=== PATIENT | female | born 1975 ===

== ENCOUNTER 2020-11-14 07:45 | Inpatient (IN) | payer OTHER ==
[~2020-11-14] VITALS: Ht 154.9 cm; Wt 90.7 kg
[2020-11-14] MEDS ORDERED: TIADYLT ER180 MG PO (09:17)
[2020-11-14] MEDS ORDERED: HYZAAR 100-251 EACH PO (09:17)
[2020-11-14] MEDS ORDERED: CARDURA1 MG PO (09:17)
[2020-11-14] MEDS ORDERED: FOLIC ACID0.8 M1 PO (09:18)
[2020-11-14] MEDS ORDERED: B12 ACTIVE1000 MCG PO (09:18)
[2020-11-14] MEDS ORDERED: PEPCID AC10 MG PO (09:18)
[2020-11-14] MEDS ORDERED: MAXIMUM D3325 MCG PO (09:20)
== END 2020-11-23 12:33 | disposition home or self-care (01) | DRG 743 ==
LOC: OB/GYN 11-21 05:00 → O/R 11-21 05:00 → OB/GYN 11-21 07:15
PROVIDERS: ADMIT Obstetrics & Gynecology; ATTEND Obstetrics & Gynecology
PROC: 0UB70ZZ Excision of Bilateral Fallopian Tubes, Open Approach (ICD-10-PCS; 2020-11-21)
PROC: 0UT20ZZ Resection of Bilateral Ovaries, Open Approach (ICD-10-PCS; 2020-11-21)
PROC: 0UB90ZZ Excision of Uterus, Open Approach (ICD-10-PCS; principal; 2020-11-21 07:15)
DX: D25.1 Intramural leiomyoma of uterus (principal); D25.0 Submucous leiomyoma of uterus; D25.2 Subserosal leiomyoma of uterus; N94.89 Other specified conditions associated with female genital organs and menstrual cycle; N83.00 Follicular cyst of ovary, unspecified side; N83.8 Other noninflammatory disorders of ovary, fallopian tube and broad ligament; N83.10 Corpus luteum cyst of ovary, unspecified side; I10 Essential (primary) hypertension

== ENCOUNTER 2020-12-27 13:39 | Outpatient (CLI) | payer OTHER ==
[~2020-12-27 13:39] MED LIST: B12 ACTIVE1000 MCG PO; CARDURA1 MG PO; FOLIC ACID0.8 M1 PO; HYZAAR 100-251 EACH PO; MAXIMUM D3325 MCG PO; PEPCID AC10 MG PO; TIADYLT ER180 MG PO
== END 2020-12-27 13:44 | disposition home or self-care (01) ==
LOC: LAB 13:39
PROVIDERS: ATTEND Specialist
DX: R05 Cough (principal); R50.9 Fever, unspecified; Z03.818 Encounter for observation for suspected exposure to other biological agents ruled out